=== PATIENT | female | born 1965 | race Caucasian/White ===

== ENCOUNTER → 2016-09-07 | Outpatient (CLI) | payer MEDICARE, MEDICAID ==
[2016-09-07 13:21] VITALS: BP 122/68
== END ==
LOC: MHUC 12:59
PROVIDERS: ATTEND Physician Assistant
DX: Z04.3 Encounter for examination and observation following other accident (principal); W19.XXXA Unspecified fall, initial encounter
CPT/HCPCS: 99213

== ENCOUNTER 2016-09-08 13:45 | Emergency (ER) | payer MEDICARE, MEDICAID ==
[~2016-09-08] VITALS: Ht 157.5 cm; Wt 90.0 kg
[2016-09-08] MEDS ORDERED: SODIUM CHLORIDE FLUSH 10 ML SYR IV PRN (14:20)
[2016-09-08] MEDS ORDERED: SODIUM CHLORIDE FLUSH 3 ML SYR IV PRN (14:20)
[2016-09-08] MEDS ORDERED: MIDAZOLAM 2 MG/2 ML (VERSED) VIAL IV ONE (14:25)
[2016-09-08] MEDS ORDERED: FLUMAZENIL (ROMAZICON) 0.1 MG/ML 5 ML VIAL IV ONE (14:55)
[2016-09-08 16:10] LABS: BASOPHILS % (AUTO) 1 % (0-2); EOSINOPHILS # (AUTO) 0.2 10^3uL; EOSINOPHILS % (AUTO) 3 % (0-4); LYMPHOCYTES # (AUTO) 2.4 X10^3; MEAN CORPUSCULAR HGB CONC 33.8 g/dL (31.0-37.0); MEAN CORPUSCULAR VOLUME 86 FL (80-100); MEAN PLATELET VOLUME 11.3 FL (6.0-9.5); MONOCYTES # (AUTO) 1.1 X10^3; MONOCYTES % (AUTO) 14 % (3-11); NEUTROPHILS # (AUTO) 3.8 X10^3; NEUTROPHILS % (AUTO) 50 % (51-67); PLATELET COUNT 130 10^3uL (150-450)
[2016-09-08 16:20] LABS: ALBUMIN 3.7 g/dL (3.4-5.0); ANION GAP 17.8 MEQ/L (3-15); CALCULATED IONIZED CALCIUM 3.8 mg/dL (3.8-4.6); TOTAL PROTEIN 8.1 g/dL (6.4-8.5)
--- NOTE | 2016-09-08 17:09 | NUR ---
Hospitalist at [facility]. Francis paged for Dr. Carmen
--- NOTE | 2016-09-08 17:18 | NUR ---
Dr. Carmen visiting with hospitalist at [place].
[2016-09-08] MEDS ORDERED: LORazepam 2 MG/ML (ATIVAN) 1 ML VIAL IV ONE ×2 (17:25→18:05)
[2016-09-08 18:24] VITALS: BP 120/80
== END 2016-09-08 18:35 ==
LOC: ED 13:46
DX: G40.909 Epilepsy, unspecified, not intractable, without status epilepticus (principal); S09.8XXA Other specified injuries of head, initial encounter; W07.XXXA Fall from chair, initial encounter; Z91.81 History of falling; I10 Essential (primary) hypertension; F79 Unspecified intellectual disabilities
CPT/HCPCS: 36415; 70450; 80053; 85025; 96374; 96375; 96376; 99283; J2060; J2250; 99284

== ENCOUNTER → 2016-09-08 | Outpatient (CLI) | payer MEDICARE, MEDICAID | LOC: EMS 18:53 | PROVIDERS: ATTEND Emergency Medicine | DX: R56.9 Unspecified convulsions (principal); Z91.81 History of falling ==

== ENCOUNTER 2016-12-23 11:31 | Emergency (ER) | payer MEDICARE, MEDICAID ==
[~2016-12-23] VITALS: Ht 154.9 cm; Wt 80.0 kg
[~2016-12-23 11:31] MED LIST: AC500T PO; ALEN70TA2 PO; AMOX-358 PO; CALC600T PO; CEPH-506 PO; DAYQUIL PO; DIPH50VI PO; DM/P295L13 PO; DOCU100C8 PO; DVL500TSR PO; EYEL1KIT TP; FA/M1TAB2 PO; FRSM20T PO; GFN600TCR PO; GUAI100L28 PO; GUAI5SYR PO; IBUP-15 PO; IBUP-793 PO; LACO1TAB PO; LACO50TA2 PO; LEVE500T6 PO; LEVE750T19 PO; LOSA50TA2 PO; LRT10T PO; METF500T PO; MIRALAX 17 GM P17 GM PO; MULT-954 PO; PROP40TA5 PO; QUET300T3 PO; SENN-36 PO; SENN8.6T80 PO; TBDX2.5OP OS; ZPR80C PO; [UNRECOGNIZED DRUG - SUPPLY]
--- NOTE | 2016-12-23 11:49 | NUR ---
Due to MR - patient does not tolerate nursing assessment. Relayed to Dr. Mcgowan. [employer] staff states patient is acting normal. No signs of distress or pain.
[2016-12-23] MEDS ORDERED: LACO50TA2 PO (12:05)
[2016-12-23] MEDS ORDERED: MAGN400O7 PO (12:05)
== END 2016-12-23 12:03 ==
LOC: ED 11:33
DX: S00.83XA Contusion of other part of head, initial encounter (principal); W18.39XA Other fall on same level, initial encounter; Z91.81 History of falling; Y93.89 Activity, other specified; Y92.129 Unspecified place in nursing home as the place of occurrence of the external cause
CPT/HCPCS: 99282